=== PATIENT | female | born 2005 | race Caucasian/White ===

== ENCOUNTER → 2023-06-07 11:25 | Outpatient (REF) | payer OTHER, SELFPAY ==
--- NOTE | 2023-06-07 11:37 | HM_ITS ---
* Total monitoring time 2 days. * Underlying rhythm is sinus. Average ventricular rate 72/Min. Range 45 to 159/Min. * Rare supraventricular ectopy. * No significant pauses or AV blocks. * Various symptoms noted in diary including dizziness, chest pain, tightness, shortness of breath, headache, rapid heartbeat. Associated with sinus rhythm, sinus tachycardia MTDD
== END ==
LOC: HO.CARD 11:25
PROVIDERS: Visit Provider Student in an Organized Health Care Education/Training Program
DX: R00.0 Tachycardia, unspecified (principal); R07.89 Other chest pain; R42 Dizziness and giddiness; R06.02 Shortness of breath; R53.82 Chronic fatigue, unspecified
CPT/HCPCS: 93225

== ENCOUNTER → 2023-06-07 11:37 | Outpatient (BNV) | payer OTHER, SELFPAY | PROVIDERS: Visit Provider Internal Medicine | DX: I47.10 Supraventricular tachycardia, unspecified (principal) | CPT/HCPCS: 93227 ==